=== PATIENT | male | born 1965 | race Caucasian/White ===

== ENCOUNTER 2018-12-05 08:58 | Outpatient (CLI) | payer BC | END 2018-12-05 23:59 | disposition home or self-care (01) | LOC: CT 08:58 | PROVIDERS: ATTEND Family Medicine | DX: J98.4 Other disorders of lung (principal) | CPT/HCPCS: 71250-TC ==

== ENCOUNTER 2018-12-08 08:56 | Outpatient (CLI) | payer BC | END 2018-12-08 23:59 | disposition home or self-care (01) | LOC: US 08:56 | PROVIDERS: ATTEND Family Medicine | DX: R31.9 Hematuria, unspecified (principal) | CPT/HCPCS: 76700-TC ==

== ENCOUNTER 2019-12-09 05:55 | Emergency (ER) | payer BC, OTHER ==
[~2019-12-09] VITALS: Ht 185.4 cm; Wt 131.5 kg
--- NOTE | 2019-12-09 06:10 | NUR ---
BIBSELF C/O GENERALIZED BODY ACHE/WEAKNESS +CHILLS, - N/V,
[2019-12-09 07:20] VITALS: BP 147/88
--- NOTE | 2019-12-09 07:20 | NUR ---
Patient discharged to home in stable condition. Written and verbal after care instructions given. Patient verbalizes understanding of instruction.
== END 2019-12-09 07:22 | disposition home or self-care (01) ==
LOC: ER 05:57
DX: J11.1 Influenza due to unidentified influenza virus with other respiratory manifestations (principal); Z71.89 Other specified counseling

== ENCOUNTER 2020-05-25 07:29 | Outpatient (CLI) | payer BC, OTHER ==
[2020-05-25 09:43] LABS: BASOPHILS % (AUTO) 0.7 % (0.0-2.0); EOSINOPHILS % (AUTO) 2.3 % (0.0-6.0); HEMATOCRIT 45 % (39-51); LYMPHOCYTES # (AUTO) 1.5 /CMM (0.8-4.8); LYMPHOCYTES % (AUTO) 25.2 % (20.0-44.0); MEAN CORPUSCULAR HGB CONC 33 g/dl (31.0-36.0); MEAN CORPUSCULAR VOLUME 86 fL (80-96); MONOCYTES # (AUTO) 0.7 /CMM (0.1-1.30); MONOCYTES % (AUTO) 11.1 % (2.0-12.0); NEUTROPHILS # (AUTO) 3.7 /CMM (1.8-8.9); NEUTROPHILS % (AUTO) 60.7 % (43.0-81.0); PLATELET COUNT (AUTO) 228 /CMM (150-450); RED BLOOD CELL COUNT(AUTO) 5.27 MIL/uL (4.5-6.0); WHITE BLOOD COUNT (AUTO) 6.1 K/uL (4.3-11.0)
[2020-05-25 09:53] LABS: BILIRUBIN,TOTAL 0.2 mg/dL (0.2-1.0); CALCIUM, SERUM 8.9 mg/dL (8.5-10.1); POTASSIUM 4.1 mmol/L (3.5-5.1); TOTAL PROTEIN, SERUM 7.1 g/dL (6.4-8.2)
[2020-05-25 10:01] LABS: THYROID STIMULATING HORMONE 1.206 uIU/mL (0.358-3.74)
== END 2020-05-25 23:59 | disposition home or self-care (01) ==
LOC: LAB 07:29
PROVIDERS: ATTEND Family Medicine
DX: I10 Essential (primary) hypertension (principal); E55.9 Vitamin D deficiency, unspecified; E78.5 Hyperlipidemia, unspecified
CPT/HCPCS: 36415; 80053-TC; 80061-TC; 82306; 84439-TC; 84443-TC; 85025-TC

== ENCOUNTER 2020-08-29 08:44 | Outpatient (CLI) | payer BC, OTHER ==
[2020-08-29 09:30] LABS: BASOPHILS % (AUTO) 0.6 % (0.0-2.0); EOSINOPHILS % (AUTO) 1.9 % (0.0-6.0); HEMATOCRIT 45 % (39-51); HEMOGLOBIN 14.8 g/dL (13.5-17.5); LYMPHOCYTES # (AUTO) 1.7 /CMM (0.8-4.8); LYMPHOCYTES % (AUTO) 27.8 % (20.0-44.0); MEAN CORPUSCULAR HGB CONC 33 g/dl (31.0-36.0); MEAN CORPUSCULAR VOLUME 87 fL (80-96); MONOCYTES # (AUTO) 0.6 /CMM (0.1-1.30); MONOCYTES % (AUTO) 10.1 % (2.0-12.0); NEUTROPHILS # (AUTO) 3.7 /CMM (1.8-8.9); NEUTROPHILS % (AUTO) 59.6 % (43.0-81.0); PLATELET COUNT (AUTO) 186 /CMM (150-450); RED BLOOD CELL COUNT(AUTO) 5.19 MIL/uL (4.5-6.0); WHITE BLOOD COUNT (AUTO) 6.2 K/uL (4.3-11.0)
[2020-08-29 09:44] LABS: ALBUMIN 3.9 g/dL (3.4-5.0); BILIRUBIN,TOTAL 0.3 mg/dL (0.2-1.0); POTASSIUM 4.7 mmol/L (3.5-5.1); TOTAL PROTEIN, SERUM 7.2 g/dL (6.4-8.2)
[2020-08-29 09:54] LABS: THYROID STIMULATING HORMONE 1.368 uIU/mL (0.358-3.74)
[2020-08-30 08:08] LABS: FOLIC ACID 9.9 ng/mL (>3.0)
== END 2020-08-29 23:59 | disposition home or self-care (01) ==
LOC: LAB 08:44
PROVIDERS: ATTEND Family Medicine
DX: I10 Essential (primary) hypertension (principal); E55.9 Vitamin D deficiency, unspecified; E53.9 Vitamin B deficiency, unspecified
CPT/HCPCS: 36415; 80053-TC; 80061-TC; 82306; 84439-TC; 84443-TC; 85025-TC

== ENCOUNTER 2021-07-12 08:05 | Emergency (ER) | payer BC, OTHER ==
[~2021-07-12] VITALS: Ht 185.4 cm; Wt 124.7 kg
[2021-07-12 08:43] LABS: BILIRUBIN,URINE Negative (NEGATIVE); COLOR,URINE YELLOW (YELLOW); LEUKOCYTE ESTERASE ,URINE Negative (NEGATIVE); NITRITE, URINE Negative (NEGATIVE); PROTEIN,URINE Negative (NEGATIVE); UGLUCOSE Negative (NEGATIVE); UROBILINOGEN,URINE 0.2 EU/dL (0.2)
[2021-07-12 08:46] LABS: BACTERIA,URINE Rare /HPF (None Seen); SQUAMOUS EPITHELIAL CELL,UR None Seen /HPF (None Seen); WBC,URINE 0-2 /HPF (0-3)
--- NOTE | 2021-07-12 08:49 | NUR ---
TO ER BED 7, C/O WEAKNESS LAST NIGHT AT 10PM THRU THE NIGHT, "NO WEAKNESS TODAY JUST MOSTLY TIRED", A&OX4, BREATHING EVEN AND UNLABORED
[2021-07-12 08:56] LABS: BASOPHILS % (AUTO) 0.5 % (0.0-2.0); EOSINOPHILS % (AUTO) 0.2 % (0.0-6.0); HEMATOCRIT 46 % (39-51); HEMOGLOBIN 15.3 g/dL (13.5-17.5); LYMPHOCYTES # (AUTO) 0.8 K/uL (0.8-4.8); MEAN CORPUSCULAR HGB CONC 34 g/dl (31.0-36.0); MEAN CORPUSCULAR VOLUME 86 fL (80-96); MONOCYTES # (AUTO) 0.7 K/uL (0.1-1.30); MONOCYTES % (AUTO) 11.2 % (2.0-12.0); NEUTROPHILS % (AUTO) 76.1 % (43.0-81.0); PLATELET COUNT (AUTO) 177 K/uL (150-450); RED BLOOD CELL COUNT(AUTO) 5.29 MIL/uL (4.5-6.0); WHITE BLOOD COUNT (AUTO) 6.6 K/uL (4.3-11.0)
[2021-07-12 08:57] LABS: CALCIUM, SERUM 9.2 mg/dL (8.5-10.1); CREATININE 0.9 mg/dL (0.6-1.3); POTASSIUM 3.8 mmol/L (3.5-5.1)
--- NOTE | 2021-07-12 08:57 | NUR ---
RESOLUTION EXPERT AT BEDSIDE
[2021-07-12] MEDS ORDERED: KETOROLAC TROMETHAMINE INJ 30 MG/ML VIAL IV ONE (09:00)
[2021-07-12 09:03] LABS: BILIRUBIN,DIRECT 0.1 mg/dL (0.0-0.2); BILIRUBIN,TOTAL 0.3 mg/dL (0.2-1.0); TOTAL PROTEIN, SERUM 7.3 g/dL (6.4-8.2)
--- NOTE | 2021-07-12 09:05 | NUR ---
COVID SWAB DONE AND SENT TO LAB
--- NOTE | 2021-07-12 10:26 | NUR ---
Patient discharged to home in stable condition. Written and verbal after care instructions given. Patient verbalizes understanding of instruction. IV removed. Catheter intact and site benign. Pressure and 4x4 applied to site. No bleeding noted.
[2021-07-12 10:27] VITALS: BP 127/78
== END 2021-07-12 10:27 | disposition home or self-care (01) ==
LOC: ER 08:06
DX: R53.1 Weakness (principal); Z20.822 Contact with and (suspected) exposure to COVID-19
CPT/HCPCS: 36415; 71045; 80048; 80076; 81001; 85025; 87426; 93005; 99285; C9803

== ENCOUNTER 2022-08-23 09:58 | Outpatient (CLI) | payer BC, OTHER ==
[2022-08-24 07:06] LABS: C-REACTIVE PROTEIN, QUANT 2 mg/L (0-10)
[2022-08-24 10:07] LABS: *ANA ANTI-CENTROMERE B AB <0.2 AI (0.0-0.9); *ANA ANTI-DNA(DS) AB, QN <1 IU/mL (0-9); *ANA ANTI-JO-1 <0.2 AI (0.0-0.9); *ANA ANTICHROMATIN ANTIBODY <0.2 AI (0.0-0.9); *ANA RNP ANTIBODIES <0.2 AI (0.0-0.9); *ANA SJOGREN'S ANTI-SS-A <0.2 AI (0.0-0.9); *ANA SJOGREN'S ANTI-SS-B <0.2 AI (0.0-0.9); *ANAANTI-SCLERODERMA-70 AB <0.2 AI (0.0-0.9); *ANASMITH AB <0.2 AI (0.0-0.9)
== END 2022-08-23 23:59 | disposition home or self-care (01) ==
LOC: LAB 09:58
PROVIDERS: ATTEND Family Medicine
DX: M25.59 Pain in other specified joint (principal)
CPT/HCPCS: 36415; 84550-TC; 85652-TC; 86140; 86225; 86235; 86431-TC

== ENCOUNTER 2023-05-08 11:51 | Outpatient (CLI) | payer BC, OTHER | END 2023-05-08 23:59 | disposition home or self-care (01) | LOC: RAD 11:51 | PROVIDERS: ATTEND Family Medicine | DX: M77.32 Calcaneal spur, left foot (principal); M77.31 Calcaneal spur, right foot; M20.42 Other hammer toe(s) (acquired), left foot; M20.41 Other hammer toe(s) (acquired), right foot; M79.672 Pain in left foot; M79.671 Pain in right foot | CPT/HCPCS: 73630-TC ==

== ENCOUNTER 2023-07-12 09:20 | Outpatient (CLI) | payer BC, OTHER | END 2023-07-12 23:59 | disposition home or self-care (01) | LOC: WOU 09:20 | PROVIDERS: ATTEND Podiatrist Foot & Ankle Surgery | DX: M21.42 Flat foot [pes planus] (acquired), left foot (principal); M21.41 Flat foot [pes planus] (acquired), right foot; M79.672 Pain in left foot; M79.671 Pain in right foot; R60.0 Localized edema; L40.50 Arthropathic psoriasis, unspecified | CPT/HCPCS: G0463 ==

== ENCOUNTER 2024-07-03 08:34 | Outpatient (CLI) | payer BC | END 2024-07-03 23:59 | disposition home or self-care (01) | LOC: WOU 08:34 | PROVIDERS: ATTEND Podiatrist Foot & Ankle Surgery | DX: M21.42 Flat foot [pes planus] (acquired), left foot (principal); M21.41 Flat foot [pes planus] (acquired), right foot; M76.71 Peroneal tendinitis, right leg; L40.50 Arthropathic psoriasis, unspecified; M79.672 Pain in left foot; M79.671 Pain in right foot; R60.0 Localized edema | CPT/HCPCS: G0463 ==

== ENCOUNTER 2024-07-10 08:35 | Outpatient (CLI) | payer BC ==
[2024-07-10] MEDS ORDERED: TRIAMCINOLONE ACETONIDE SUSP 40 MG/ML VIAL IM ONE (08:36)
[2024-07-10] MEDS ORDERED: ETHYL CHLORIDE SPRAY 1 EA BOTTLE TP ONE (08:36)
[2024-07-10] MEDS ORDERED: dexaMETHasone SOD PHOSPHATE 4 MG/ML VIAL IV ONE (08:36)
[2024-07-10] MEDS ORDERED: LIDOCAINE HCL/MPF 1% 30 ML VIAL IJ ONE (09:47)
== END 2024-07-10 23:59 | disposition home or self-care (01) ==
LOC: WOU 08:35
PROVIDERS: ATTEND Podiatrist Foot & Ankle Surgery
DX: M21.42 Flat foot [pes planus] (acquired), left foot (principal); M21.41 Flat foot [pes planus] (acquired), right foot; L40.50 Arthropathic psoriasis, unspecified; M76.71 Peroneal tendinitis, right leg; R60.0 Localized edema; M79.672 Pain in left foot; M79.671 Pain in right foot
CPT/HCPCS: 20605; J1100; J3301; J3490

== ENCOUNTER 2024-10-03 04:46 | Emergency (ER) | payer BC, OTHER ==
[~2024-10-03] VITALS: Ht 185.4 cm; Wt 113.4 kg
[2024-10-03 05:25] VITALS: BP 111/68; TEMP 97.9; O2SAT 99
== END 2024-10-03 05:35 | disposition home or self-care (01) ==
LOC: ER 04:49
DX: B34.9 Viral infection, unspecified (principal); I10 Essential (primary) hypertension; H54.62 Unqualified visual loss, left eye, normal vision right eye

== ENCOUNTER 2024-11-06 11:12 | Emergency (ER) | payer BC, OTHER ==
[~2024-11-06] VITALS: Ht 185.4 cm; Wt 108.9 kg
[2024-11-06 11:21] VITALS: BP 124/86; TEMP 98.1
[2024-11-06] MEDS ORDERED: CLOT15CR5 TP (11:55)
[2024-11-06] MEDS ORDERED: MUPI22OI7 TP (11:55)
[2024-11-06 12:01] VITALS: O2SAT 99
[2024-11-07] MEDS ORDERED: MUPI15CR TP (16:07)
[2024-11-07] MEDS ORDERED: MUPI1OIN5 TP (16:26)
== END 2024-11-06 12:02 | disposition home or self-care (01) ==
LOC: ER 11:16
DX: B35.4 Tinea corporis (principal); H54.62 Unqualified visual loss, left eye, normal vision right eye; I10 Essential (primary) hypertension; Z60.2 Problems related to living alone

== ENCOUNTER 2025-04-01 08:04 | Outpatient (CLI) | payer BC ==
[~2025-04-01 08:04] MED LIST: CLOT15CR5 TP; MUPI15CR TP; MUPI1OIN5 TP; MUPI22OI7 TP
== END 2025-04-01 23:59 | disposition home or self-care (01) ==
LOC: CARD 08:04
PROVIDERS: ATTEND Family Medicine
DX: E78.49 Other hyperlipidemia (principal); Z82.49 Family history of ischemic heart disease and other diseases of the circulatory system
CPT/HCPCS: 76770-TC; 93880-TC